=== PATIENT | female | born 1975 | race Hispanic/Latino ===

== ENCOUNTER 2018-02-04 13:14 | Emergency (ER) | payer SELFPAY ==
[2018-02-04 14:16] LABS: Basophils # (Auto) 0.1 K/mm3 (0.0-0.1); Basophils % (Auto) 0.8 % (0.0-1.8); Eosinophils # (Auto) 0.1 K/mm3 (0.0-0.4); Hematocrit 42.8 % (30.3-42.9); Hemoglobin 14.9 gm/dl (10.1-14.3); Lymphocytes # (Auto) 2.1 K/mm3 (1.2-5.4); Lymphocytes % (Auto) 32.6 % (13.4-35.0); Mean Corpuscular HGB Conc 35 % (30-34); Mean Corpuscular Hemoglobin 33 pg (28-32); Mean Corpuscular Volume 96 fl (79-97); Monocytes # (Auto) 0.5 K/mm3 (0.0-0.8); Platelet Count 259 K/mm3 (140-440); Red Blood Count 4.47 M/mm3 (3.65-5.03); Red Cell Distribution Width 12.7 % (13.2-15.2)
[2018-02-04 14:31] LABS: BUN/Creatinine Ratio 9; Blood Urea Nitrogen 9 mg/dL (7-17); Calcium 9.2 mg/dL (8.4-10.2); Hemolysis Index 1
[2018-02-04] MEDS ORDERED: TYLENOL PO ONE (14:42)
--- NOTE | 2018-02-04 14:46 | Emergency Department Report ---
Chief Complaint: Dizziness Stated Complaint: HEART CONDITION/DIZZY Time Seen by Provider: 02/04/18 14:37 - HPI History of Present Illness: 42-year-old female presents to the emergency department with a complaint of dizziness, generalized weakness and a generalized headache. 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 She denies any chest pain, shortness of breath or any other neurological deficits. She does have a history of CHF and cardiomyopathy. She has [address] which she follows up with [facility] in [place] for cardiology but is currently living in [facility] in a sober living residence. No recent travel or sick contacts at home. She is a tobacco smoker. She did not take anything for her symptoms prior to presentation. - ROS Review of Systems: Positive for dizziness, generalized weakness, headache Negative for chest pain, shortness of breath, fever - Exam Vital Signs: Vital Signs 02/04/18 13:31 Temperature 97.9 F Pulse Rate 72 Respiratory 18 Rate Blood Pressure 125/80 O2 Sat by Pulse 100 Oximetry Physical Exam: She is awake and alert in no acute distress. Cranial nerves II through XII grossly intact. No focal, motor or sensory deficits. Heart and lung sounds are normal in auscultation. MSE screening note: Focused history and physical exam performed. Due to findings the following was ordered: Patient's EKG shows some nonspecific intraventricular conduction delay and a prolonged OH interval. No ST elevation AL. The labs done thus far show a hypokalemia with a potassium of 3.3 by will be replaced with potassium chloride. First troponin negative. I have added a TSH. She will have a CT scan of the head without contrast done. She has been given some Tylenol for her headache. ED Medical Decision Making - Lab Data Result diagrams: 02/04/18 14:03 02/04/18 14:03 ED Disposition for MSE Condition: Stable
[2018-02-04 15:19] LABS: HCG Qualitative,Urine Negative (Negative)
[2018-02-04] MEDS ORDERED: K-DUR PO ONE (15:37)
--- NOTE | 2018-02-04 17:12 | Cat Scan Report ---
FINAL REPORT EXAM: CT HEAD/BRAIN WO CON HISTORY: headache TECHNIQUE: Standard unenhanced CT of the head at 5.0 millimeter axial increments. PRIORS: None. FINDINGS: The ventricular system is normal in size and configuration. There is no evidence for parenchymal volume loss. There is no evidence for mass lesion, mass effect, midline shift, acute intracranial hemorrhage, or acute ischemia/ infarction. No evidence for acute skull fracture is seen. No abnormality in the overlying scalp soft tissues is seen. Visualized paranasal sinuses are clear. IMPRESSION: Negative CT of the head. No acute intracranial process noted.
[2018-02-04] MEDS ORDERED: TORADOL IM ONE (17:32)
--- NOTE | 2018-02-04 17:41 | Emergency Department Report ---
ED Dizziness HPI - General Chief Complaint: Dizziness Stated Complaint: HEART CONDITION/DIZZY Time Seen by Provider: 02/04/18 14:37 Source: patient Mode of arrival: Ambulatory Limitations: No Limitations - History of Present Illness Initial Comments: This is a 42-year-old female nontoxic, well nourished in appearance, no acute signs of distress presents to the ED with c/o of acute on chronic headache, generalized weakness, and dizziness. Patient describes headache as diffuse with level of 3 out of 10. 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 Patient denies thunderclap headache. Patient denies any radiation of pain. Patient denies any head trauma. Patient denies any visual changes. Patient denies worse headache. Patient stated that darkness makes headache better and bright lights make the headache worse. Patient denies any numbness, tingling, fever, chills, nausea, vomiting, chest pain, shortness of breath, stiff neck. Patient denies any radiation of pain. Patient denies any allergies. PMH includes CHF, cardiomyopathy and cardiac stents. MD Complaint: dizziness, near syncope, other (headache) -: This afternoon Timing: gradual onset Description: lightheadedness History of Same: Yes History of Trauma: No Severity: mild Improves With: nothing Worsens With: nothing Associated Symptoms: denies: ataxia, chest pain, confusion, cough, diaphoresis, fever/chills, loss of appetite, malaise, rash, seizure, shortness of breath, syncope, weakness - Related Data Previous Rx's Medication Instructions Recorded Last Taken Type Ibuprofen [Motrin] 600 mg PO Q8H PRN #30 tablet 02/04/18 Unknown Rx Allergies Allergy/AdvReac Type Severity Reaction Status Date / Time No Known Allergies Allergy Verified 02/04/18 13:36 ED Review of Systems ROS: Stated complaint: HEART CONDITION/DIZZY Other details as noted in HPI Constitutional: denies: chills, fever Eyes: denies: eye pain, eye discharge, vision change ENT: denies: ear pain, throat pain Respiratory: denies: cough, shortness of breath, wheezing Cardiovascular: denies: chest pain, palpitations Endocrine: no symptoms reported Gastrointestinal: denies: abdominal pain, nausea, diarrhea Genitourinary: denies: urgency, dysuria, discharge Musculoskeletal: denies: back pain, joint swelling, arthralgia Skin: denies: rash, lesions Neurological: headache. denies: weakness, paresthesias Psychiatric: denies: anxiety, depression Hematological/Lymphatic: denies: easy bleeding, easy bruising ED Past Medical Hx - Past Medical History Previous Medical History?: Yes Hx Hypertension: Yes Hx Heart Attack/AMI: Yes (cardiomyopathy, CHF) - Surgical History Past Surgical History?: Yes Additional Surgical History: 4 cardiac stent - Social History Smoking Status: Current Every Day Smoker Substance Use Type: None - Medications Home Medications: Home Medications Medication Instructions Recorded Confirmed Last Taken Type Ibuprofen [Motrin] 600 mg PO Q8H PRN #30 tablet 02/04/18 Unknown Rx ED Physical Exam - General Limitations: No Limitations General appearance: alert, in no apparent distress - Head Head exam: Present: atraumatic, normocephalic - Eye Eye exam: Present: normal appearance Pupils: Present: normal accommodation - ENT ENT exam: Present: normal exam, mucous membranes moist - Neck Neck exam: Present: normal inspection, full ROM. Absent: tenderness, meningismus, lymphadenopathy - Respiratory Respiratory exam: Present: normal lung sounds bilaterally. Absent: respiratory distress, wheezes, rales, rhonchi, stridor, chest wall tenderness, accessory muscle use, decreased breath sounds, prolonged expiratory - Cardiovascular Cardiovascular Exam: Present: regular rate, normal rhythm, normal heart sounds. Absent: bradycardia, tachycardia, irregular rhythm, systolic murmur, diastolic murmur, rubs, gallop - GI/Abdominal GI/Abdominal exam: Present: soft, normal bowel sounds. Absent: distended, tenderness, guarding, rebound, rigid, diminished bowel sounds - Rectal Rectal exam: Present: deferred - Extremities Exam Extremities exam: Present: normal inspection, full ROM, normal capillary refill. Absent: tenderness, joint swelling - Back Exam Back exam: Present: normal inspection, full ROM. Absent: tenderness, CVA tenderness (R), CVA tenderness (L), muscle spasm, paraspinal tenderness, vertebral tenderness, rash noted - Neurological Exam Neurological exam: Present: alert, oriented X3, normal gait - Expanded Neurological Exam Expanded Patient oriented to: Present: person, place, time Cranial nerves: EOM's Intact: Normal, Facial Sensation: Normal Cerebellar function: Finger to Nose: Normal Upper motor neuron: Pronator Drift: Normal Sensory exam: Upper Extremity Light Touch: Normal, Upper Extremity Pin Prick: Normal, Upper Extremity Temperature: Normal, UE 2 Point Discrimination: Normal, Lower Extremity Light Touch: Normal, Lower Extremity Pin Prick: Normal, Lower Extremity Temperature: Normal, LE 2 Point Discrimination: Normal Motor strength exam: RUE: 5, LUE: 5, RLE: 5, LLE: 5 Best Eye Response (Rashid): (4) open spontaneously Best Motor Response ([place]): (6) obeys commands Best Verbal Response (Rashid): (5) oriented [place] Total: 15 - Psychiatric Psychiatric exam: Present: normal affect, normal mood - Skin Skin exam: Present: warm, dry, intact, normal color. Absent: rash ED Course Vital Signs 02/04/18 02/04/18 13:31 14:58 Temperature 97.9 F Pulse Rate 72 Respiratory 18 18 Rate Blood Pressure 125/80 O2 Sat by Pulse 100 Oximetry - Reevaluation(s) Reevaluation #1: 02/04/18 17:39 Patient is speaking in full sentences with no signs of distress noted. - Consultations Consultation #1: 02/04/18 17:40 Patient has been consulted with Nilsa Childs about patient history, physical exam, and labs/CT scan and examined and screened patient and agrees to ED plan of care and discharge plan of care. ED Medical Decision Making - Lab Data Result diagrams: 02/04/18 14:03 02/04/18 14:03 - Medical Decision Making This is a 42-year-old female that presents with headache, dizziness, hypokalemia. Patient is stable and was examined by nh and Dr. Wilcox. Patient is neurologically stable. Ct of head unremarkable. Labs unremarkable except for hypokalemia. Patient was notified of the CT results. There is no stiff neck or neck pain. Vital signs are stable. Patient is afebrile. Patient stated she is able to take Motrin and all NSAIDs. Patient received Tylenol and Toradol which the patient stated that headache has subsided and resolved. Patient is discharged with Motrin. Patient was referred to Follow-up with a primary care/neurologist doctor in 3-5 days or if symptoms worsen and continue return to emergency room as soon as possible. At time of discharge, the patient does not seem toxic or ill in appearance. No acute signs of distress noted. Patient agrees to discharge treatment plan of care. No further questions noted by the patient. Critical care attestation.: If time is entered above; I have spent that time in minutes in the direct care of this critically ill patient, excluding procedure time. ED Disposition Clinical Impression: Dizziness, Hypokalemia Headache Qualifiers: Headache type: unspecified Headache chronicity pattern: acute headache Intractability: not intractable Qualified Code(s): R51 - Headache Disposition: - TO HOME OR SELFCARE Is pt being admited?: No Does the pt Need Aspirin: No Condition: Stable Instructions: Hypokalemia (ED), Acute Headache (ED), Dizziness (ED) Additional Instructions: Follow-up with a primary care/neurologist doctor in 3-5 days or if symptoms worsen and continue return to emergency room as soon as possible. Prescriptions: Ibuprofen [Motrin] 600 mg PO Q8H PRN #30 tablet PRN Reason: Pain Referrals: PRIMARY CARE, [Primary Care Provider] - 3-5 Days REA GONZALEZ MD [Staff Physician] - 3-5 Days [facility] [Outside] - 3-5 Days DESTINI ECKERT MD [Staff Physician] - 3-5 Days [facility] [Outside] - 3-5 Days Forms: Work/School Release Form(ED)
[2018-02-04 17:57] VITALS: BP 122/72
== END 2018-02-04 17:55 | disposition home or self-care (01) ==
LOC: ED 13:14
DX: R51 Headache (principal); R53.1 Weakness; R42 Dizziness and giddiness; E87.6 Hypokalemia; I10 Essential (primary) hypertension; F17.200 Nicotine dependence, unspecified, uncomplicated; I25.2 Old myocardial infarction; I42.9 Cardiomyopathy, unspecified; I50.9 Heart failure, unspecified
CPT/HCPCS: 36415; 70450; 80048; 81025; 84443; 84484; 85025; 93005; 93010; 96372; 99284; J1885